=== PATIENT | female | born 1955 | race Caucasian/White ===

== ENCOUNTER 2018-04-18 15:39 | Emergency (ER) | payer OTHER, SELFPAY ==
[2018-04-18 15:44] VITALS: BP 149/92; PULSE 96; RESP 14; TEMP 36.7; O2SAT 94; BMI 39.3
--- NOTE | 2018-04-18 15:45 | DI.RAD.S_ITS ---
PROCEDURE: XR SHOULDER RT MIN 2V INDICATIONS: injury and pain TECHNIQUE: 2 views of the shoulder were acquired. COMPARISON: None. FINDINGS: Bones: There is a comminuted fracture of the right humeral neck with impaction. In addition, fracture extends into the humeral head and tuberosity. There is mild subluxation at the glenohumeral joint. Moderate acromioclavicular degenerative narrowing. Soft tissues: No suspicious soft tissue calcifications. IMPRESSION: Comminuted right humeral neck fracture extending to the humeral head as above. Dictated by: Karen Flood M.D. on 04/18/2018 at 17:06 Approved by: Karen Flood M.D. on 04/18/2018 at 17:08
[2018-04-18] MEDS: OXYCODONE/ACETAMINOPHEN 5/325 TABLET 2 TAB PO (17:49)
--- NOTE | 2018-04-18 18:02 | ED.FALL ---
HPI - Fall General Chief Complaint: Fall Stated Complaint: FALL RIGHT ARM AND SHOULDER PAIN Time Seen by Provider: 04/18/18 17:17 History of Present Illness HPI Narrative: HPI 62-year-old obese female who takes no blood thinners or antiplatelet agents presents for evaluation of focal right shoulder pain after she fell on her right shoulder while tripping over an object while hiking. Patient denies further injuries. No head strike, no LOC. Remains ambulatory. M/S/F/SocHx notable for: please see HPI; remainder reviewed with patient and in chart. ROS: Negative constitutional, eye, cardiovascular, pulmonary, GI, , MSK, skin, neurologic, psychiatric, endocrine unless noted in the HPI. Exam General: pleasant, nontoxic-appearing, appears to be in mild to moderate discomfort. HENT: No evidence of facial or head trauma, TTP of orbits, TTP of midface, malocclusion, or septal hematoma. OP clear and moist, dentition intact. Eyes: EOMI, PERRL. Neck: Tracheal midline. No visible skin defects, no step-offs, no c-spine TTP, no stridor, or JVD. Cardiac: Regular rate and rhythm. Chest: No crepitus, visual evidence of trauma, no tenderness to palpation. Equal chest rise. Pulm: Clear to auscultation bilaterally, normal work of breathing without accessory muscle usage. Abd: Soft, nontender to palpation, nondistended, no guarding or visual evidence of trauma. Back: No spinous process tenderness to palpation, no step-offs or visible injuries. Pelvis: Stable, no tenderness to palpation or instability. RUE: No visible injuries. Mailroom Supervisor 5/5, radial pulse 2+, sensation intact at hand. Shoulder with focal tenderness palpation. Elbow, wrist, humerus, forearm, hand, fingers without tenderness to palpation or palpable abnormalities. 5/5 hvac lead strength. Sensation intact to touch over the deltoid, as well as grossly over the upper and lower arm. LUE: No visible injuries. Mailroom Supervisor 5/5, radial pulse 2+, sensation intact at hand. Shoulder, elbow, wrist, and fingers with full functional range of motion. Muscle compartments of the upper arm, forearm, and hand are soft and without marked tenderness to palpation. RLE: No visible injuries. Dorsiflexion 5/5, foot warm and well perfused, sensation intact at foot. Hip, knee, ankle, with full functional range of motion. Muscle compartments of the thigh, calf, and foot are soft and without marked tenderness to palpation. LLE: No visible injuries. Dorsiflexion 5/5, foot warm and well perfused, sensation grossly intact. Hip, knee, ankle, with full functional range of motion. Muscle compartments of the thigh, calf, and foot are soft and without marked tenderness to palpation. Neuro: AOx3, CN VII intact Skin: Warm and dry (focal injuries noted above). Psych: Normal affect and judgment. Labs / Imaging (pertinent): XR R Shoulder: Bones: There is a comminuted fracture of the right humeral neck with impaction. In addition, fracture extends into the humeral head and tuberosity. There is mild subluxation at the glenohumeral joint. Moderate acromioclavicular degenerative narrowing. Soft tissues: No suspicious soft tissue calcifications. IMPRESSION: Comminuted right humeral neck fracture extending to the humeral head as above. MDM Previous chart, nursing note, and vitals reviewed. A: 62-year-old obese female who takes no blood thinners or antiplatelet agents presents for evaluation of focal right shoulder pain after she fell on her right shoulder while tripping over an object while hiking. Evaluation: patient with focal pain which corresponds to a comminuted an impacted right humeral neck fracture extending into the humeral head. CMS intact. History and exam without evidence of further injuries. 10 mg oxycodone PO in a sling ordered at time of patient care transfer to the [facility], Dr. Hoffmann. Orthopedic consultation pending. Impression: Right humeral fracture. (please reference below for remainder of encounter information) Related Data Home Medications Medication Instructions Recorded Confirmed amlodipine [Norvasc] 5 mg PO QDAY #0 11/14/17 04/17/18 aspirin #0 11/14/17 04/15/18 atorvastatin [Lipitor] 40 mg PO HS #0 11/14/17 04/17/18 cholecalciferol (vitamin D3) 1 tab PO QDAY #0 11/14/17 04/15/18 [Vitamin D3] ramipril [Altace] 10 mg PO QDAY #0 11/14/17 04/15/18 Previous Rx's Medication Instructions Recorded medroxyprogesterone 10 mg PO QDAY #14 tab 11/19/17 ciprofloxacin HCl [Cipro] 500 mg PO BID #10 tab 01/01/18 Allergies Allergy/AdvReac Type Severity Reaction Status Date / Time gentamicin [GENTAMICIN] Allergy Unknown Verified 04/18/18 15:44 Exam Initial Vital Signs Initial Vital Signs: Vital Signs Temperature 98.1 F 04/18/18 15:44 Pulse Rate 96 H 04/18/18 15:44 Respiratory Rate 14 04/18/18 15:44 Blood Pressure 149/92 H 04/18/18 15:44 Pulse Oximetry 94 04/18/18 15:44 PFSH Medical History Arthritis (Acute) History of colon polyps (Acute) Hypertension (Acute) Murmur (Acute) Obese (Acute) Postmenopausal (Acute) Postmenopausal bleeding (Acute) Recurrent UTI (Acute) Surgical History History of colonoscopy (Acute) Social History Smoking Status: Never smoker Course Orders Ordered: ED Orders 04/18/18 15:45 XR shoulder RT min 2V Stat Discontinued Medications Oxycodone HCl (Percolone) 10 mg PO NOW ONE Stop: 04/18/18 17:39 Last Admin: 04/18/18 17:48 Dose: Oxycodone/Acetaminophen (Percocet 5/325) 2 tab PO NOW ONE Stop: 04/18/18 17:49 Last Admin: 04/18/18 17:49 Dose: 2 tab Vital Signs - 8 hr 04/18/18 15:44 Temperature 98.1 F Pulse Rate 96 H Respiratory Rate 14 Blood Pressure 149/92 H Pulse Oximetry 94 Discharge Plan Departure Prescriptions: No Action amlodipine [Norvasc] 5 MG tablet 5 mg PO QDAY Qty: 0 RF: 0 aspirin 81 MG tablet,delayed release (DR/EC) Qty: 0 RF: 0 atorvastatin [Lipitor] 40 MG tablet 40 mg PO HS Qty: 0 RF: 0 ramipril [Altace] 10 MG capsule 10 mg PO QDAY Qty: 0 RF: 0 cholecalciferol (vitamin D3) [Vitamin D3] 2,000 UNIT tablet 1 tab PO QDAY Qty: 0 RF: 0 medroxyprogesterone 10 MG tablet 10 mg PO QDAY Qty: 14 RF: 2 ciprofloxacin HCl [Cipro] 500 MG tablet 500 mg PO BID Qty: 10 RF: 2
[2018-04-18 19:45] VITALS: BP 142/63; PULSE 71; RESP 16; TEMP 36.4; O2SAT 98
[2018-04-18] MEDS: OXYCODONE/APAP 5/325 PREPACK 1 BOTTLE MISC (20:07)
== END 2018-04-18 20:31 | disposition home or self-care (01) ==
PROVIDERS: Emergency Provider Emergency Medicine; PCP Internal Medicine
DX: S42.301A Unspecified fracture of shaft of humerus, right arm, initial encounter for closed fracture (principal); W01.198A Fall on same level from slipping, tripping and stumbling with subsequent striking against other object, initial encounter; Y93.01 Activity, walking, marching and hiking
CPT/HCPCS: 29240; 73030; 99283

== ENCOUNTER 2018-05-29 12:22 | Day surgery (SDC) | payer OTHER, SELFPAY ==
[2018-04-17 08:47] VITALS: BMI 40.2
--- NOTE | 2018-05-29 | PATH_ITS ---
[facility] Accession Number: [id number] . 01 Material submitted: . ENDOMETRIAL POLYP AND CURETTAGE . 01 Diagnosis: Endometrial Polyp Curettage: Benign endometrial polyp fragments. No atypical hyperplasia or malignancy. MRV/06/02/2018 . 01 Comment: As part of ongoing automotive quality manager, this case is also reviewed by Dr. Kerri Muller, who concurs with the given interpretation. . 01 Electronically signed: . Agatha Berg MD, Pathologist NPI- [id number] . 01 Gross description: . Received one formalin-filled container, labeled with the patient's name and labeled endometrial polyp and curettage. The specimen consists of approximately a 1.25 cc aggregate of tissue, mucoid material and blood. Filtered, wrapped and entirely submitted in one cassette. ([facility]:[id number]) /MRV . 01 Pathologist provided ICD-10: N84.0 . 01 CPT . 472638 Performed at: [address] [facility] [address], [place], [place] [id number] MD Fernando Winters MD Phone: [phone]
[2018-05-29 13:10] VITALS: BP 149/86; PULSE 79; RESP 16; TEMP 36.2; O2SAT 97; BMI 40.2
[2018-05-29] MEDS: LACTATED RINGERS 1,000 ML 100 ML IV (13:17)
--- NOTE | 2018-05-29 13:18 | PM.PREOP ---
Pre-operative Note Interval Note Pre-op Check: Yes History & Physical Reviewed by Physician and Yes Exam Performed Changes: No H&P completed within 30 days and has changed as indicated here:: see 04/15/18 out patient note
--- NOTE | 2018-05-29 14:11 | SUR.OPER ---
Lithotomy on padded OR bed, head on pillow, arms secured on padded arm boards at <90 degrees abduction. Legs secured in padded yellow fins stirrups.
[2018-05-29 14:24] VITALS: BP 164/91; PULSE 91; RESP 18; TEMP 36.2; O2SAT 94
--- NOTE | 2018-05-29 14:28 | PM.OP.1 ---
Operative Date/Time/Diagnoses Date of procedure: 05/29/18 Time of procedure: 14:28 Pre-op diagnosis: postmenopausal bleeding Post-op diagnosis: same Procedure & Clinicians Procedure: hysteroscopy resection polyp, endometrial currettage Same procedure as scheduled: Yes Indications: post menopausal bleeding, thickened endometrium on US Surgeon: Maria Elena Santiago Click Yes if Unassisted: Yes Anesthesia Type: General Operative Notes Findings: large endometrial polyp normal thin endometrium otherwise Closure Type: not applicable Specimen(s): other (polyp and endometrial currettings) Estimated Blood Loss (mL): 5 Blood products transfused: none Procedure in detail: The patient was brought to the operating room where she underwent general anesthesia. She was placed in low stirrups She was prepped and draped in usual sterile fashion with pulsatile stockings in place and functional, warming in place. No antibiotics were indicated. Her bladder was drained with in and out catheter. A single-tooth tenaculum was placed on the anterior lip of the cervix and the uterus dilated to #8 Hegar dilator. The hysteroscope was placed into the uterus with a sorbitol solution running and under constant suction. The resecting loop set at 80 W of cutting was used to resect the polyp down to the level of the endometrium. A endometrial curettage was performed. The polyp and the endometrial curettage was sent to pathology. The patient went to recovery room in good condition counts of instruments and sponges were correct. Estimated blood loss less than 5 mL. The sorbitol solution I=O approximately 1000 mL. Complications: none Condition: stable Disposition: same day surgery Plan for aftercare: Follow-up in 2 weeks.
[2018-05-29 14:30] VITALS: BP 147/98; PULSE 86; RESP 14; O2SAT 92
[2018-05-29 14:35] VITALS: BP 139/49; PULSE 79; RESP 12; O2SAT 95
[2018-05-29 14:42] VITALS: BP 148/81; PULSE 76; RESP 15; O2SAT 94
[2018-05-29 15:05] VITALS: BP 143/78; PULSE 71; RESP 16; TEMP 36.6; O2SAT 94
--- NOTE | 2018-05-29 15:38 | SUR.PHASEII ---
pt left when ready and left in stable condition.
== END 2018-05-29 15:30 | disposition home or self-care (01) ==
PROVIDERS: PCP Internal Medicine; Visit Provider Specialist
PROC: 0UDB8ZZ Extraction of Endometrium, Via Natural or Artificial Opening Endoscopic (ICD-10-PCS; CPT 58558; principal; 2018-05-29 13:30)
DX: N84.0 Polyp of corpus uteri (principal); I10 Essential (primary) hypertension
CPT/HCPCS: 58553; 58558; J1100; J2405; J2704; J3010

== ENCOUNTER → 2018-06-03 10:26 | Outpatient (CLI) | payer OTHER, SELFPAY ==
--- NOTE | 2018-06-03 | DI.ECHO.S_ITS ---
[place] [facility]---------+ [facility] +---------+ : : [address] : : : : [id number] : : : : Phone: [phone] Echocardiogram Report + + :Name: INDIRA FENG Study Date: 06/03/2018 Height: 62 in : :[facility] Exam Location: [facility] Weight: 218 lb : : Gender: Female BSA: 2.0 m2 : :: 1955 Age: 62 yrs BP: 115/76 mmHg: :Reason For Study: CARO : :Ordering Physician: Kamilah : :Sharee Kelley Performed By: Faith Crowley : :Referring: KAMILAH KELLEY : + + Interpretation Summary Tehcnically difficult study limiting valve visualization. 1) Normal left ventricular thickness, size, wall motion, and systolic function (EF 60-65%). 2) Normal right ventricular size and function. 3) No significant valvular abnormalities. 4) The right ventricular systolic pressure is estimated at 27 mmHg assuming a right atrial pressure of 3 mm Hg. 5) No prior Echo available for comparison. Procedure: A two-dimensional transthoracic echocardiogram with color flow and Doppler was performed. The study quality was technically difficult. There is no prior echocardiogram noted for this patient. A contrast injection of Definity was performed to improve assessment of LV function. The patient was in normal sinus rhythm during the exam. Left Ventricle: The left ventricle is normal in size, wall thickness, and systolic function without any focal wall motion abnormalities. The ejection fraction is estimated to be 60-65%. Assessment of diastolic parameters indicates a relaxation abnormality of the left ventricle, consistent with normal filling pressures. Right Ventricle: The right ventricle is normal in size and function. Atria: The left atrium is moderately dilated. The right atrium is mildly dilated. There is no Doppler evidence for an interatrial shunt. Mitral Valve: The mitral valve is normal. There is mild mitral regurgitation. Aortic Valve: The aortic valve is not well visualized. The aortic valve opens well. There is no aortic valve stenosis. No aortic regurgitation is present. Tricuspid Valve: The tricuspid valve is normal. There is trace tricuspid regurgitation. The right ventricular systolic pressure is estimated at 27 mmHg assuming a right atrial pressure of 3 mm Hg. Pulmonic Valve: The pulmonic valve is not well visualized. There is a trace or physiologic amount of pulmonic regurgitation. Great Vessels: The aortic root is normal size. The ascending aorta is normal in size. The aortic arch is at the upper limits of normal in size. The pulmonary is not well visualized. The IVC is of normal diameter and collapses greater than 50% with a sniff. This suggests a low right atrial pressure of 3 mm Hg. Pericardium/ Pleura There is no pericardial effusion. There is no pleural effusion. MMode/2D Measurements & Calculations LVIDd: 3.7 cm LVOT diam: 1.7 cm LVIDs: 2.1 cm Ao root diam: 2.9 cm FS: 42.9 % asc Aorta Diam: 3.5 cm EPSS: 0.24 cm Ao Arch Diam (Prox Trans): 3.3 cm IVSd: 0.87 cm LVPWd: 0.96 cm LV baker. diameter/BSA (cm/m^2): 1.9 LV sys. diameter/BSA (cm/m^2): 1.1 LA A2 area: 24.3 cm2 RA long axis: 6.4 cm LA A4 area: 20.9 cm2 RA area: 22.6 cm2 LA length (vol): 6.1 cm RA vol: 68.3 ml LA vol: 70.2 ml RA : 34.5 ml/m2 LA vol index: 35.4 ml/m2 IVC diam: 1.7 cm RVD1 (basal): 4.1 cm RVD2 (mid): 3.0 cm TAPSE: 2.0 cm Doppler Measurements & Calculations Ao V2 max: 148.2 cm/sec LVOT Max Hugh: 123.8 cm/sec Ao V2 mean: 101.7 cm/sec LV V1 max P.1 mmHg Ao max P.8 mmHg LV V1 VTI: 29.5 cm Ao mean P.7 mmHg JUDAH(I,D): 2.0 cm2 Ao V2 VTI: 31.6 cm JUDAH(V,D): 1.8 cm2 sev ratio: 0.94 JUDAH indexed to BSA (cm^2/m^2): 1.0 MV E max hugh: 98.7 cm/sec TR max hugh: 244.3 cm/sec MV A max hugh: 147.2 cm/sec TR max P.9 mmHg MV E/A: 0.67 PA V2 max: 88.2 cm/sec Med Peak E' Huhg: 7.2 cm/sec PA V2 mean: 57.3 cm/sec E/E' med: 13.8 PA mean P.5 mmHg Lat Peak E' Hugh: 7.1 cm/sec PA pr(Accel): 36.6 mmHg E/E' lat: 14.0 E/e' average: 13.9 MV dec time: 0.27 sec MV P1/2t: 79.4 msec MV P1/2t max hugh: 99.8 cm/sec MVA(P1/2t): 2.8 cm2 Reading Physician:12:50 PM
== END ==
PROVIDERS: PCP Internal Medicine; Visit Provider Internal Medicine Cardiovascular Disease
DX: I34.0 Nonrheumatic mitral (valve) insufficiency (principal); R06.09 Other forms of dyspnea
CPT/HCPCS: C8929; Q9957

== ENCOUNTER → 2018-06-19 11:26 | Outpatient (CLI) | payer OTHER, SELFPAY ==
--- NOTE | 2018-06-19 | DI.MG.S_ITS ---
BILATERAL DIGITAL SCREENING MAMMOGRAM 3D/2D WITH CAD: 06/19/2018 CLINICAL: Routine screening. Comparison is made to exams dated: 07/09/2017 mammogram, 07/24/2016 mammogram, and 09/18/2015 mammogram - [facility]. There are scattered fibroglandular elements in both breasts. Current study was also evaluated with a Computer Aided Detection (CAD) system. No significant masses, calcifications, or other findings are seen in either breast. There has been no significant interval change. IMPRESSION: NEGATIVE There is no mammographic evidence of malignancy. A 1 year screening mammogram is recommended. This exam was interpreted at Station ID: [id number]. NOTE: For mammograms, a report in lay terms will be sent to the patient. Approximately 15% of breast malignancies will not be visualized mammographically. In the management of a palpable breast mass, a negative mammogram must not discourage biopsy of a clinically suspicious lesion. Electronically Signed By: Quita abad/jesus alberto:06/19/2018 15:56:29 letter sent: Normal Exam ACR BI-RADS Category 1: Negative [id number]
== END ==
PROVIDERS: Family Provider Internal Medicine; PCP Internal Medicine; Visit Provider Internal Medicine
DX: Z12.31 Encounter for screening mammogram for malignant neoplasm of breast (principal)
CPT/HCPCS: 77063; 77067

== ENCOUNTER → 2019-08-10 17:49 | Outpatient (CLI) | payer MEDICARE, OTHER, SELFPAY ==
--- NOTE | 2019-08-10 | DI.MG.S_ITS ---
BILATERAL DIGITAL SCREENING MAMMOGRAM 3D/2D WITH CAD: 08/10/2019 CLINICAL: Routine screening. Comparison is made to exams dated: 06/19/2018 mammogram, 07/09/2017 mammogram, 07/24/2016 mammogram, and 09/18/2015 mammogram - [facility]. There are scattered fibroglandular elements in both breasts. Current study was also evaluated with a Computer Aided Detection (CAD) system. No significant masses, calcifications, or other findings are seen in either breast. There has been no significant interval change. IMPRESSION: NEGATIVE There is no mammographic evidence of malignancy. A 1 year screening mammogram is recommended. This exam was interpreted at Station ID: [id number]. NOTE: For mammograms, a report in lay terms will be sent to the patient. Approximately 15% of breast malignancies will not be visualized mammographically. In the management of a palpable breast mass, a negative mammogram must not discourage biopsy of a clinically suspicious lesion. Electronically Signed By: Raymond bassett/jesus alberto:08/11/2019 07:38:07 letter sent: Normal Exam ACR BI-RADS Category 1: Negative 3341F
== END ==
PROVIDERS: Family Provider Internal Medicine; PCP Internal Medicine; Visit Provider Internal Medicine
DX: Z12.31 Encounter for screening mammogram for malignant neoplasm of breast (principal)
CPT/HCPCS: 77063; 77067

== ENCOUNTER → 2020-05-16 11:27 | Outpatient (CLI) | payer MEDICARE, OTHER, SELFPAY ==
[2020-05-16 12:39] LABS: Add Manual Diff / Slide Review NO; Basophils Absolute Auto 0 /uL (0-100); Basophils Percent Auto 0.9 % (0-2); Eosinophils Absolute Auto 100 /uL (0-450); Eosinophils Percent Auto 2.5 % (2-4); Hematocrit 41.7 % (36-46); Hemoglobin 14.2 g/dL (12.0-16.0); Lymphocytes Absolute Auto 1200 /uL (1100-4500); Lymphocytes Percent Auto 21.3 % (25-40); Mean Corpuscular HGB Conc 34.1 % (30-36); Mean Corpuscular Hemoglobin 29.7 PG (26-34); Mean Corpuscular Volume 87.2 fL (80-100); Monocytes Absolute Auto 400 /uL (0-900); Monocytes Percent Auto 6.5 % (3-14); Neutrophils Absolute Auto 3800 /uL (1500-7000); Neutrophils Percent Auto 68.8 % (50-75); Platelet Count 220 X10^3/uL (150-400); Red Blood Cell Count 4.78 X10^6/uL (4.0-5.2); Red Cell Distribution Width 13.1 % (11.6-14.8); White Blood Cell Count 5.6 X10^3/uL (4.5-11.0)
[2020-05-16 12:58] LABS: Hemoglobin A1C% w Est Avg Glu 5.7 % (4.0-6.0)
[2020-05-16 15:29] LABS: Alanine Aminotransferase 26 IU/L (<35); Albumin 4.3 g/dL (3.5-5.0); Albumin Globulin Ratio 1.7 (1.0-2.8); Alkaline Phosphatase 115 U/L (38-126); Aspartate Aminotransferase 28 IU/L (14-36); BUN Creatinine Ratio 17.3 (6-22); Bilirubin Total 2.2 mg/dL (0.2-1.3); Blood Urea Nitrogen 13 mg/dL (7-17); Calcium 9.5 mg/dL (8.4-10.2); Carbon Dioxide 28 mmol/L (22-32); Chloride 107 mmol/L (98-107); Cholesterol 143 mg/dL (140-199); Estimated Glomerular Filt Rate > 60.0 mL/min (>60); Globulin 2.6 g/dL (1.7-4.1); Glucose 108 mg/dL (80-110); HDL Cholesterol 46 mg/dL (40-60); HEMOLYSIS < 15 (0-50); LDL Cholesterol Calculated 61 mg/dL (<100); Potassium 4.1 mmol/L (3.4-5.1); Sodium 140 mmol/L (137-145); Total Protein 6.9 g/dL (6.3-8.2); Triglycerides 181 mg/dL (35-150)
[2020-05-16 15:43] LABS: TSH w/ Reflex to FT4 1.57 uIU/mL (0.47-4.68)
[2020-05-16 16:18] LABS: Vitamin B12 266 pg/mL (239-931)
== END ==
PROVIDERS: Family Provider Internal Medicine; PCP Internal Medicine; Referring Provider Internal Medicine; Visit Provider Internal Medicine
DX: I10 Essential (primary) hypertension (principal); R53.82 Chronic fatigue, unspecified; E78.2 Mixed hyperlipidemia; R73.01 Impaired fasting glucose
CPT/HCPCS: 36415; 80053; 80061; 82607; 83036; 84443; 85025

== ENCOUNTER → 2020-05-17 14:10 | Outpatient (CLI) | payer MEDICARE, OTHER, SELFPAY | PROVIDERS: Family Provider Internal Medicine; PCP Internal Medicine; Referring Provider Internal Medicine; Visit Provider Internal Medicine | DX: Z78.0 Asymptomatic menopausal state (principal); Z82.62 Family history of osteoporosis | CPT/HCPCS: 77080 ==

== ENCOUNTER → 2020-08-23 13:59 | Outpatient (CLI) | payer MEDICARE, OTHER, SELFPAY ==
--- NOTE | 2020-08-23 | DI.MG.S_ITS ---
BILATERAL DIGITAL SCREENING MAMMOGRAM 3D/2D WITH CAD: 08/23/2020 CLINICAL: Routine screening. Comparison is made to exams dated: 08/10/2019 mammogram, 06/19/2018 mammogram, and 07/09/2017 mammogram - [facility]. There are scattered fibroglandular elements in both breasts. Current study was also evaluated with a Computer Aided Detection (CAD) system. There is a focal asymmetry in the left breast at 4 o'clock middle depth. No other significant masses, calcifications, or other findings are seen in either breast. IMPRESSION: INCOMPLETE: NEEDS ADDITIONAL IMAGING EVALUATION The focal asymmetry in the left breast is indeterminate. Additional views with possible ultrasound are recommended. This exam was interpreted at Station ID: [id number]. NOTE: For mammograms, a report in lay terms will be sent to the patient. Approximately 15% of breast malignancies will not be visualized mammographically. In the management of a palpable breast mass, a negative mammogram must not discourage biopsy of a clinically suspicious lesion. Electronically Signed By: Quita abad/jesus alberto:08/29/2020 13:43:54 letter sent: Additional Imaging Needed ACR BI-RADS Category 0: Incomplete 3340F
== END ==
PROVIDERS: Family Provider Internal Medicine; PCP Internal Medicine; Referring Provider Internal Medicine; Visit Provider Internal Medicine
DX: Z12.31 Encounter for screening mammogram for malignant neoplasm of breast (principal)
CPT/HCPCS: 77063; 77067

== ENCOUNTER → 2020-09-19 13:14 | Outpatient (CLI) | payer MEDICARE, OTHER, SELFPAY ==
--- NOTE | 2020-09-19 | DI.US.S_ITS ---
ULTRASOUND OF LEFT BREAST: 09/19/2020 CLINICAL: Patient returns today to evaluate an asymmetry in left breast. Comparison is made to exams dated: 09/19/2020 mammogram, 08/23/2020 mammogram, 08/10/2019 mammogram, and 06/19/2018 mammogram - [facility]. Real-time and continuous wave Doppler ultrasound of the left breast were performed on the areas of interest. There is a cluster of microcysts in the left breast at 4 o'clock anterior depth. This correlates with mammography findings. IMPRESSION: PROBABLY BENIGN The cluster of microcysts in the left breast is probably benign. A follow-up left ultrasound in 6 months is recommended to demonstrate stability. This exam was interpreted at Station ID: [id number]. Electronically Signed By: Quita abad/:09/19/2020 14:33:50 letter sent: Followup Recommended Ultrasound BI-RADS: 3 Probably benign
--- NOTE | 2020-09-19 | DI.MG.S_ITS ---
UNILATERAL LEFT DIGITAL DIAGNOSTIC MAMMOGRAM 3D/2D WITH ADDITIONAL VIEWS: 09/19/2020 CLINICAL: Additional evaluation requested from prior study. Comparison is made to exams dated: 08/23/2020 mammogram, 08/10/2019 mammogram, and 06/19/2018 mammogram - [facility]. There are scattered fibroglandular elements in left breast. The focal asymmetry in the left breast at 4 o'clock middle depth is seen in additional views. This is less prominent on compression views. No other significant masses or calcifications are seen in the breast. IMPRESSION: INCOMPLETE: NEEDS ADDITIONAL IMAGING EVALUATION The focal asymmetry in the left breast is indeterminate. A targeted ultrasound of the left breast is recommended and will be performed immediately following this exam. This exam was interpreted at Station ID: [id number]. NOTE: For mammograms, a report in lay terms will be sent to the patient. Approximately 15% of breast malignancies will not be visualized mammographically. In the management of a palpable breast mass, a negative mammogram must not discourage biopsy of a clinically suspicious lesion. Electronically Signed By: Quita Han M.D. lk/:09/19/2020 14:02:14 letter sent: Additional Imaging Needed ACR BI-RADS Category 0: Incomplete 3340F
== END ==
PROVIDERS: Family Provider Internal Medicine; PCP Internal Medicine; Referring Provider Internal Medicine; Visit Provider Internal Medicine
DX: N60.02 Solitary cyst of left breast (principal); R92.8 Other abnormal and inconclusive findings on diagnostic imaging of breast
CPT/HCPCS: 76642; 77065; G0279

== ENCOUNTER → 2020-11-22 09:38 | Outpatient (CLI) | payer MEDICARE, OTHER, SELFPAY ==
--- NOTE | 2020-11-22 | DI.MRI.S_ITS ---
BREAST MRI OF BOTH BREASTS: 11/22/2020 CLINICAL: Left breast lump. TECHNIQUE: The patient was placed prone in a dedicated breast imaging coil. Precontrast axial STIR and 3D FLASH without fat saturation sequences were obtained. Both before and after bolus injection of contrast, sequential 1-minute axial 3D FLASH with fat saturation sequences for 3 time points, with subtraction images and maximum intensity projections (MIP's) generated. Delayed sagittal FLASH images with fat saturation were also obtained. Computer-aided detection, including computer algorithm analysis of MRI image data for lesion detection and characterization, pharmacokinetic analysis, with further physician review for interpretation, was performed. COMPARISON: [facility], , SCREENING MAMMO BI, 08/10/2019, 18:05. [facility], SCREENING MAMMO BI, 08/23/2020, 14:23. [facility], US BREAST LT LIMITED, 09/19/2020, 14:09. FINDINGS: Image quality: Good. There is [id number]-[id number] background parenchymal enhancement. Right breast: Moderate nodular background parenchymal enhancement. There are also a few scattered foci of enhancing high T2 signal suggesting tiny fibroadenomas or intramammary lymph nodes. No suspicious mass or non masslike enhancement. Left breast: Mild nodular background parenchymal enhancement, less extensive than the contralateral side. There are two small 5 mm enhancing foci in the anterior left breast, one at 03:00 o'clock and one at 04:00 o'clock. 04:00 o'clock lesion demonstrates slightly more angular margin and may correspond to the ultrasound finding. The 03:00 o'clock lesion is more smoothly marginated and rounded. Neither of these lesions demonstrate significantly increased T2 signal, and demonstrate low T1 signal. The 04:00 o'clock lesion is too small for kinetic analysis by [employer] software. The 03:00 o'clock lesion demonstrates a benign enhancement pattern with medium initial enhancement and persistent wash-in. Miscellaneous: Scattered benign-appearing small axillary and axillary tail lymph nodes bilaterally. The visible portion of the chest wall, heart, and liver appear normal. IMPRESSION: PROBABLY BENIGN 1. 04:00 o'clock anterior left breast lesion measuring about 5 mm remains indeterminate. Continue follow-up with ultrasound imaging as previously recommended. Patient will be due for this study in February,. 2. Benign appearing background parenchymal enhancement, tiny fibroadenomas or intramammary lymph nodes are seen bilaterally. No other suspicious masses or adenopathy. BIRADS three, probably benign. COMMENT: The imaging literature indicates that a negative contrast breast MRI examination has a high sensitivity and a moderate specificity for detecting and excluding invasive carcinomas to a detection threshold of 3-5 mm; nonetheless, appropriate clinical and mammographic follow-up are recommended. MRI is not sensitive for detecting DCIS (ductal carcinoma in situ) and may not detect large invasive neoplasms that show only minimal enhancement such as mucinous carcinoma. If there are suspicious calcifications or clinically worrisome palpable masses, then biopsy should still be considered. Invasive neoplasms can be hidden by co-existent and benign enhancement caused by mastitis, hormone therapy effects, radiation therapy, , and recent biopsy or surgery. False positive examinations can occur in a number of circumstances, including breasts that have recently been subject to invasive procedures and those that contain atypical ductal hyperplasia, hormonally stimulated glandular tissue, fat necrosis, or radial scars. This exam was interpreted at Station ID: [id number]. Electronically Signed By: Frida guevara/:11/23/2020 15:23:43 letter sent: Followup Recommended ACR BI-RADS Category 3: Probably benign [id number]
[2020-11-22 10:15] LABS: Alanine Aminotransferase 29 IU/L (<35); Albumin 4.4 g/dL (3.5-5.0); Albumin Globulin Ratio 1.4 (1.0-2.8); Alkaline Phosphatase 120 U/L (38-126); Aspartate Aminotransferase 30 IU/L (14-36); BUN Creatinine Ratio 22.8 (6-22); Bilirubin Total 1.4 mg/dL (0.2-1.3); Blood Urea Nitrogen 18 mg/dL (7-17); Calcium 9.6 mg/dL (8.4-10.2); Carbon Dioxide 29 mmol/L (22-32); Chloride 106 mmol/L (98-107); Cholesterol 141 mg/dL (140-199); Estimated Glomerular Filt Rate > 60.0 mL/min (>60); Globulin 3.1 g/dL (1.7-4.1); Glucose 108 mg/dL (80-110); HDL Cholesterol 51 mg/dL (40-60); HEMOLYSIS < 15 (0-50); LDL Cholesterol Calculated 58 mg/dL (<100); Sodium 140 mmol/L (137-145); Total Protein 7.5 g/dL (6.3-8.2); Triglycerides 161 mg/dL (35-150)
[2020-11-22 11:03] LABS: Vitamin B12 963 pg/mL (239-931)
== END ==
PROVIDERS: Family Provider Internal Medicine; PCP Internal Medicine; Referring Provider Internal Medicine; Visit Provider Internal Medicine
DX: N63.23 Unspecified lump in the left breast, lower outer quadrant (principal); I10 Essential (primary) hypertension; E53.8 Deficiency of other specified B group vitamins; E78.5 Hyperlipidemia, unspecified
CPT/HCPCS: 36415; 77049; 80053; 80061; 82607

== ENCOUNTER → 2021-09-03 12:34 | Outpatient (CLI) | payer MEDICARE, OTHER, SELFPAY ==
--- NOTE | 2021-09-03 12:38 | DI.US.S_ITS ---
ULTRASOUND OF LEFT BREAST: 09/03/2021 CLINICAL: Patient returns for a 6 month follow up of the left breast. Comparison is made to exams dated: 09/03/2021 mammogram - [facility], 03/22/2021 ultrasound - [facility], 11/22/2020 breast MRI, 09/19/2020 ultrasound, 09/19/2020 mammogram, and 08/23/2020 mammogram - [facility]. Color flow and real-time ultrasound of the left breast were performed. Strange scale images of the real-time examination were reviewed. There is a 0.4 cm x 0.3 cm x 0.4 cm cluster of microcysts versus complicated cyst in the left breast at 3:30 o'clock anterior depth 1 cm from the nipple. These abnormalities are decreased in size and less prominent and correlates with prior mammography and breast MRI findings. No new or suspicious abnormalities seen in the left breast IMPRESSION: PROBABLY BENIGN The 0.4 cm x 0.3 cm x 0.4 cm cluster of microcysts versus complicated cyst in the left breast is probably benign. There is no abnormality seen in the left breast to correspond with the areas of clinical concern and palpable abnormality at 12 o'clock which likely represent normal fibroglandular tissue, however, recommend clinical follow up for persistent or worsening symptoms, or development of any clinically suspicious findings. 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 Findings and recommendations were discussed with the patient telephonically by Dr. Titus during today's examination. This exam was interpreted at Station ID: [id number]. Electronically Signed By: Raymond Titus M.D. aty/:09/03/2021 15:37:08 letter sent: Followup Recommended Ultrasound BI-RADS: 3 Probably benign
--- NOTE | 2021-09-03 12:38 | DI.MG.S_ITS ---
BILATERAL DIGITAL DIAGNOSTIC MAMMOGRAM 3D/2D SHORT-TERM FOLLOW-UP: 09/03/2021 CLINICAL: Short term follow up of the left breast, due for bilateral imaging. Comparison is made to exams dated: 03/22/2021 ultrasound - [facility], 09/19/2020 ultrasound, 09/19/2020 mammogram, and 08/23/2020 mammogram - [facility]. There are scattered fibroglandular elements in both breasts. The previously described focal asymmetry in the left breast at 4 o'clock middle depth continues to appear less prominent and decreased in size and was not seen on the most recent comparison ultrasound of February 2021. No other new significant masses, calcifications, or other findings are seen in either breast. IMPRESSION: INCOMPLETE: NEEDS ADDITIONAL IMAGING EVALUATION The previously described focal asymmetry in the left breast at 4 o'clock middle depth is less conspicuous and smaller in size. A targeted ultrasound of the left breast is recommended and will be performed immediately following this exam. This exam was interpreted at Station ID: [id number]. NOTE: For mammograms, a report in lay terms will be sent to the patient. Approximately 15% of breast malignancies will not be visualized mammographically. In the management of a palpable breast mass, a negative mammogram must not discourage biopsy of a clinically suspicious lesion. Electronically Signed By: Raymond Titus M.D. aty/:09/03/2021 15:18:01 ACR BI-RADS Category 0: Incomplete 3340F
== END ==
PROVIDERS: Family Provider Internal Medicine; PCP Internal Medicine; Referring Provider Internal Medicine; Visit Provider Internal Medicine
DX: R92.8 Other abnormal and inconclusive findings on diagnostic imaging of breast (principal); N64.89 Other specified disorders of breast
CPT/HCPCS: 76642; 77066; G0279

== ENCOUNTER → 2022-09-04 10:25 | Outpatient (CLI) | payer MEDICARE, OTHER, SELFPAY ==
--- NOTE | 2022-09-04 | DI.US.S_ITS ---
LIMITED ULTRASOUND OF LEFT BREAST: 09/04/2022 CLINICAL: 6 month follow-up of cysts. Comparison is made to exams dated: 09/04/2022 mammogram, 09/03/2021 ultrasound, 09/03/2021 mammogram - [facility], 03/22/2021 ultrasound - [facility], 11/22/2020 breast MRI, and 08/23/2020 mammogram - [facility]. Color flow and real-time ultrasound of the left breast 3-4 o'clock region were performed. Strange scale images of the real-time examination were reviewed. There is a 0.7 cm x 0.4 cm x 0.4 cm wider than tall cluster of cysts in the left breast at 3 o'clock anterior depth 1 cm from the nipple. These abnormalities are not significantly changed. IMPRESSION: BENIGN There is no sonographic evidence of malignancy. The 0.7 cm cluster of cysts in the left breast is not significantly changed since August 2020 and demonstrates long-term stability and is benign. Exam findings were discussed with the patient. Patient is advised to monitor for significant change. A 1 year screening mammogram is recommended. This exam was interpreted at Station ID: [id number]. Electronically Signed By: Don Yoder M.D. slc/:09/04/2022 11:47:02 letter sent: Normal Exam Ultrasound BI-RADS: 2 Benign
--- NOTE | 2022-09-04 | DI.MG.S_ITS ---
BILATERAL DIGITAL DIAGNOSTIC MAMMOGRAM 3D/2D SHORT-TERM FOLLOW-UP: 09/04/2022 CLINICAL: Short term follow up of the left breast, due for bilateral imaging. Comparison is made to exams dated: 09/03/2021 mammogram, 11/22/2020 breast MRI, 09/19/2020 mammogram, 08/23/2020 mammogram, and 09/03/2021 ultrasound - . There are scattered areas of fibroglandular density in both breasts (category b / 25%-50% glandular tissue). There is a focal asymmetry in the left breast at 4 o'clock middle depth. This is less prominent. No other significant masses, calcifications, or other findings are seen in either breast. IMPRESSION: INCOMPLETE: NEEDS ADDITIONAL IMAGING EVALUATION The focal asymmetry in the left breast is indeterminate. A targeted ultrasound is recommended and will immediately follow. Based on the Tyrer Cuzick model (a risk assessment model) the patient's lifetime risk is 5.0% and her 10 year risk is 3.0%. According to the ACR, ACS, and NCCN guidelines, an annual breast MRI exam along with mammogram is recommended if the patient's lifetime risk is 20% or greater. This exam was interpreted at Station ID: [id number]. NOTE: For mammograms, a report in lay terms will be sent to the patient. Approximately 15% of breast malignancies will not be visualized mammographically. In the management of a palpable breast mass, a negative mammogram must not discourage biopsy of a clinically suspicious lesion. Electronically Signed By: Don Yoder M.D. slc/:09/04/2022 10:53:11 ACR BI-RADS Category 0: Incomplete 3340F
== END ==
PROVIDERS: PCP Internal Medicine; Referring Provider Internal Medicine; Visit Provider Internal Medicine
DX: R92.8 Other abnormal and inconclusive findings on diagnostic imaging of breast (principal); N60.02 Solitary cyst of left breast
CPT/HCPCS: 76642; 77066; G0279

== ENCOUNTER → 2022-09-06 11:04 | Outpatient (CLI) | payer MEDICARE, OTHER, SELFPAY ==
[2022-09-06 12:40] LABS: COVID19 -Nasal RAPID Negative (Negative)
== END ==
PROVIDERS: PCP Internal Medicine; Visit Provider Surgery
DX: Z01.812 Encounter for preprocedural laboratory examination (principal); Z20.822 Contact with and (suspected) exposure to COVID-19
CPT/HCPCS: 87635; C9803

== ENCOUNTER 2022-09-09 07:59 | Day surgery (SDC) | payer MEDICARE, OTHER, SELFPAY ==
--- NOTE | 2022-09-09 | PATH_ITS ---
[facility] Accession Number: [id number] . 01 Material submitted: . PART A: colon - TRANSVERSE COLON POLYP X2 PART B: colon - ASCENDING COLON POLYP X2 . 01 Diagnosis: A. Transverse Colon, Polyp x2, Biopsy: Tubular adenomas. . B. Ascending Colon, Polyp x2, Biopsy: Tubular adenomas. JN 09/11/2022 1703 Local . 01 Electronically signed: . Mckenzie Yan MD, Pathologist NPI- [id number] . 01 Gross description: . Part A: TRANSVERSE COLON POLYP X2: Received in formalin are multiple fragment(s) of friedman, soft tissue measuring 1.3 x 0.5 x 0.1 cm in aggregate submitted entirely in 1 cassette(s) Part B: ASCENDING COLON POLYP X2: Received in formalin are 2 fragment(s) of friedman, soft tissue measuring 0.3 x 0.1 x 0.1 cm to 0.3 x 0.1 x 0.1 cm submitted entirely in 1 cassette(s) /CPE 09/10/2022 0702 Local . 01 Pathologist provided ICD-10: D12.2, D12.3 . 01 CPT . 302585, 202305 Specimen Comment: A courtesy copy of this report has been sent to [phone] Performed at: 01 [facility] [address] [place] [address] [address], [place], [place] [id number] MD Fernando Winters MD Phone: [phone]
[2022-09-09] MEDS: LACTATED RINGERS 1,000 ML 100 ML IV (08:12)
[2022-09-09 08:20] VITALS: BP 128/74; PULSE 85; RESP 16; TEMP 36.9; O2SAT 98; BMI 38.4
--- NOTE | 2022-09-09 09:00 | PM.HP.1 ---
History of Present Illness History of Present Illness Date Patient Seen: 09/09/22 Time Patient Seen: 09:00 Chief complaint: SDC Narrative: Personal history of colon polyps. Patient History Medical History Arthritis History of colon polyps Hypertension Murmur Obese Postmenopausal Postmenopausal bleeding Recurrent UTI Status post hysteroscopy (~05/29/18) Surgical History History of colonoscopy Family & Social History Social History: household members spouse Tobacco & Substance use: Smoking Status Never smoker alcohol intake current alcohol intake frequency holiday/special occasion Substance Use Type does not use Meds Home Medications and Allergies Home Medications Medication Instructions Recorded Confirmed Type amlodipine 5 mg tablet (Norvasc) 5 mg PO QDAY ##0 11/14/17 09/09/22 History aspirin 81 mg tablet,delayed 81 mg PO DAILY ##0 11/14/17 09/09/22 History release atorvastatin 40 mg tablet (Lipitor) 40 mg PO HS ##0 11/14/17 09/09/22 History cholecalciferol (vitamin D3) 50 1 tab PO QDAY ##0 11/14/17 09/09/22 History mcg (2,000 unit) tablet (Vitamin D3) ResMed AirSense 10 Auto 11/20/21 11/20/21 History amlodipine 5 mg tablet 5 mg PO DAILY 09/09/22 09/09/22 History Allergies Allergy/AdvReac Type Severity Reaction Status Date / Time Sulfa (Sulfonamide Allergy Intermediate Hives Verified 11/20/21 16:20 Antibiotics) gentamicin [GENTAMICIN] Allergy Unknown Verified 11/20/21 16:20 Review of Systems Review of Systems ROS: Yes All systems reviewed with the patient and are negative except as otherwise documented Exam Vital Signs (past 8 hours): - 09/09/22 08:20 Temperature 98.4 F Pulse Rate 85 Respiratory Rate 16 Blood Pressure 128/74 Pulse Oximetry 98 Oxygen Delivery Method Room Air Oxygen Delivery Method Room Air Const General: cooperative HENMT Head: normal to inspection Eyes General: appearance normal, both eyes and all related structures Neck Neck: normal visual inspection Chest Chest: normal inspection of the chest Resp Effort & Inspection: normal respiratory effort Cardio Rate: regular rate GI Inspection: normal to inspection Skin General: no rashes or lesions noted Neuro General: patient alert and patient awake Extrem General: normal to inspection and no pedal edema Psych Appearance: grossly normal Assessment & Plan Assessment & Plan narrative: 67-year-old female with a personal history of adenomatous colon polyps. Colonoscopy is pursued today. Time Spent With Patient Critical Care time: I spent a total of [] minutes of critical care time on this patient's care today; this time is exclusive of procedural time.
--- NOTE | 2022-09-09 09:01 | PM.PREOP ---
Pre-operative Note COVID-19 COVID-19 status: Negative Result date/Date tested (Pos, Neg/Pending): 09/06/22 Criteria for continued procedure: Possibility delay results in more complex future surgery or treatment Interval Note History & Physical reviewed/Exam performed by Physician: Yes Changes to H&P: No ASA Class (for procedural sedation): III
--- NOTE | 2022-09-09 09:45 | PM.OP.COLON ---
Operative Date/Time/Diagnoses Date of procedure: 09/09/22 Time of procedure: 09:45 Pre-op diagnosis: Personal history of colon polyps Post-op diagnosis: same Procedure & Clinicians Study performed: Colonoscopy with hot snare, cold snare, and cold forceps polypectomy Same procedure as scheduled: Yes Indications: Personal history of colon polyps Surgeon: Rick Menchaca Procedure Notes SCOAP/Timeout: Done Procedure in detail: After the risks and benefits were explained, written and verbal informed consent was obtained. The patient was brought into the procedure room and placed into the left lateral decubitus position. Please see nurse aniline press worker notes for sedation details. Digital rectal examination was accomplished. The scope was introduced into the patient and advanced under direct visualization to the cecum as identified by the appendiceal orifice and ileocecal valve. The scope was slowly withdrawn to carefully examine the mucosa for any defects or lesions. Comprehensive imaging was accomplished throughout the rectum including the dentate line. The colon was decompressed, the scope was then removed from the patient who tolerated the procedure well. Adult colonoscope Bowel prep fair; with copious irrigation and suction this was rendered adequate Scope withdrawal time: 19 minutes Sedation minutes: 35 Complications: none Impression: The patient had a fairly lengthy somewhat tortuous colon. Navigation was challenging. This required use of the stiffening deonna and abdominal pressure. In the transverse colon there were 2 polyps ranging in size from 5-6 mm. Hot and cold snare were utilized. In the ascending colon there was a diminutive polyp removed with cold snare and cold forceps. Endoscopic diagnosis Multiple colon polyps Post-procedure Plan for aftercare: 1. Await histopathology. 2. Repeat colonoscopy 3 years. Disposition: PACU
[2022-09-09 09:46] VITALS: BP 110/47; PULSE 77; RESP 12; TEMP 36.8; O2SAT 96
[2022-09-09 09:51] VITALS: BP 109/66; PULSE 81; RESP 16; O2SAT 94
[2022-09-09 09:56] VITALS: BP 103/47; PULSE 73; RESP 18; O2SAT 97
[2022-09-09 10:03] VITALS: TEMP 36.9
[2022-09-09 10:09] VITALS: BP 130/70; PULSE 74; RESP 14; TEMP 36.9; O2SAT 94
== END 2022-09-09 10:22 | disposition home or self-care (01) ==
PROVIDERS: PCP Internal Medicine; Referring Provider Internal Medicine Gastroenterology; Visit Provider Internal Medicine Gastroenterology
PROC: 0DJD8ZZ Inspection of Lower Intestinal Tract, Via Natural or Artificial Opening Endoscopic (ICD-10-PCS; CPT 45378; principal; 2022-09-09 09:00)
DX: Z12.11 Encounter for screening for malignant neoplasm of colon (principal); Z86.010 Personal history of colon polyps; D12.3 Benign neoplasm of transverse colon; D12.2 Benign neoplasm of ascending colon
CPT/HCPCS: 45385; 45380; J2704

== ENCOUNTER → 2023-09-10 11:12 | Outpatient (CLI) | payer MEDICARE, OTHER, SELFPAY ==
--- NOTE | 2023-09-10 | DI.MG.S_ITS ---
BILATERAL DIGITAL SCREENING MAMMOGRAM 3D/2D WITH CAD: 09/10/2023 CLINICAL: Routine screening. Comparison is made to exams dated: 09/04/2022 mammogram, 09/03/2021 mammogram, and 08/23/2020 mammogram - [facility]. There are scattered areas of fibroglandular density in both breasts (category b / 25%-50% glandular tissue). Current study was also evaluated with a Computer Aided Detection (CAD) system. No significant masses, calcifications, or other findings are seen in either breast. There has been no significant interval change. IMPRESSION: NEGATIVE There is no mammographic evidence of malignancy. A 1 year screening mammogram is recommended. Based on the Tyrer Cuzick model (a risk assessment model) the patient's lifetime risk is 4.8% and her 10 year risk is 3.0%. According to the ACR, ACS, and NCCN guidelines, an annual breast MRI exam along with mammogram is recommended if the patient's lifetime risk is 20% or greater. This exam was interpreted at Station ID: [id number]. NOTE: For mammograms, a report in lay terms will be sent to the patient. Approximately 15% of breast malignancies will not be visualized mammographically. In the management of a palpable breast mass, a negative mammogram must not discourage biopsy of a clinically suspicious lesion. Electronically Signed By: Frida guevara/jesus alberto:09/10/2023 16:02:45 letter sent: Normal Exam ACR BI-RADS Category 1: Negative 3341F
== END ==
PROVIDERS: PCP Internal Medicine; Referring Provider Internal Medicine; Visit Provider Internal Medicine
DX: Z12.31 Encounter for screening mammogram for malignant neoplasm of breast (principal)
CPT/HCPCS: 77063; 77067

== ENCOUNTER → 2024-11-09 09:58 | Outpatient (CLI) | payer MEDICARE, OTHER, SELFPAY ==
--- NOTE | 2024-11-09 10:00 | DI.MG.S_ITS ---
BILATERAL DIGITAL SCREENING MAMMOGRAM 3D/2D WITH CAD: 11/09/2024 CLINICAL: Routine screening. Comparison is made to exams dated: 09/10/2023 mammogram, 09/04/2022 mammogram, and 09/03/2021 mammogram - [facility]. There are scattered areas of fibroglandular density (category b / 25%-50% glandular tissue). Current study was also evaluated with a Computer Aided Detection (CAD) system. No significant masses, calcifications, or other findings are seen in either breast. There has been no significant interval change. IMPRESSION: NEGATIVE There is no mammographic evidence of malignancy. A 1 year screening mammogram is recommended. Based on the Tyrer Cuzick model (a risk assessment model) the patient's lifetime risk is 4.5% and her 10 year risk is 3.1%. According to the ACR, ACS, and NCCN guidelines, an annual breast MRI exam along with mammogram is recommended if the patient's lifetime risk is 20% or greater. This exam was interpreted at Station ID: [id number]. NOTE: For mammograms, a report in lay terms will be sent to the patient. Approximately 15% of breast malignancies will not be visualized mammographically. In the management of a palpable breast mass, a negative mammogram must not discourage biopsy of a clinically suspicious lesion. Electronically Signed By: Frida guevara/jesus alberto:11/15/2024 10:07:28 letter sent: Normal Exam ACR BI-RADS Category 1: Negative
== END ==
PROVIDERS: PCP Internal Medicine; Referring Provider Internal Medicine; Visit Provider Internal Medicine
DX: Z12.31 Encounter for screening mammogram for malignant neoplasm of breast (principal)
CPT/HCPCS: 77063; 77067

== ENCOUNTER → 2025-08-22 10:38 | Outpatient (CLI) | payer MEDICARE, OTHER, SELFPAY ==
--- NOTE | 2025-08-22 10:43 | DI.RAD.S_ITS ---
PROCEDURE: XR SHOULDER RT MIN 2V INDICATIONS: Evaluate fracture healing and for generalized OA TECHNIQUE: 3 views of the shoulder were acquired. COMPARISON: [facility], CR, XR SHOULDER RT MIN 2V, 04/18/2018, 16:27. FINDINGS: Bones: No acute fractures or dislocations. Chronic fracture deformity of the proximal humerus. Mild degenerative changes at the acromioclavicular joint. No suspicious bony lesions. Visualized ribs appear intact. Soft tissues: No suspicious soft tissue calcifications. IMPRESSION: No acute osseous abnormality. Mild chronic fracture deformity of the proximal humerus. If there is continued clinical concern or persistent symptoms, repeat radiographs or cross-sectional imaging (e.g. CT, MRI) may be helpful for further evaluation. Approved by: Avery López M.D. on 08/22/2025 at 11:32
== END ==
PROVIDERS: PCP Internal Medicine; Referring Provider Chiropractor; Visit Provider Chiropractor
DX: M21.821 Other specified acquired deformities of right upper arm (principal); M25.511 Pain in right shoulder
CPT/HCPCS: 73030